=== PATIENT | male | born 1995 | race Caucasian/White ===

== ENCOUNTER → 2024-08-31 | Emergency (ER) | payer OTHER ==
[~2024-08-31] VITALS: Ht 180.3 cm; Wt 81.6 kg
[~2024-08-31] MED LIST: FAMOTIDINE/PF INJ 20 MG/2 ML VIAL IV ONE; ONDANSETRON HCL/PF 4 MG/2 ML VIAL ONE; PANT40TA49 PO
[2024-08-31] MEDS: IV NS 0.9% 1,000 ML BAG IV ONE (16:06)
[2024-08-31] MEDS: FAMOTIDINE/PF INJ 20 MG/2 ML VIAL IV ONE (16:06)
[2024-08-31] MEDS: ONDANSETRON HCL/PF 4 MG/2 ML VIAL IVP ONE (16:07)
[2024-08-31 16:21] LABS: BASOPHILS % (AUTO) 0.7 % (0.0-2.0); HEMATOCRIT 43 % (39-51); HEMOGLOBIN 14.8 g/dL (13.5-17.5); LYMPHOCYTES # (AUTO) 1.2 K/uL (0.8-4.8); LYMPHOCYTES % (AUTO) 27.3 % (20.0-44.0); MEAN CORPUSCULAR HEMOGLOBIN 32 PG (26.0-33.0); MEAN CORPUSCULAR HGB CONC 35 g/dl (31.0-36.0); MEAN CORPUSCULAR VOLUME 93 fL (80-96); MONOCYTES # (AUTO) 0.3 K/uL (0.1-1.30); MONOCYTES % (AUTO) 7.8 % (2.0-12.0); NEUTROPHILS # (AUTO) 2.9 K/uL (1.8-8.9); NEUTROPHILS % (AUTO) 63.2 % (43.0-81.0); PLATELET COUNT (AUTO) 291 K/uL (150-450); RED BLOOD CELL COUNT(AUTO) 4.57 MIL/uL (4.5-6.0); RED CELL DISTRIBUTION WIDTH 13.6 % (11.5-15.0); WHITE BLOOD COUNT (AUTO) 4.5 K/uL (4.3-11.0)
[2024-08-31 16:35] LABS: CALCIUM, SERUM 9.1 mg/dL (8.5-10.1); POTASSIUM 4.4 mmol/L (3.5-5.1)
[2024-08-31 16:40] LABS: ALBUMIN 4.5 g/dL (3.4-5.0); BILIRUBIN,DIRECT 0.1 mg/dL (0.0-0.2); BILIRUBIN,TOTAL 0.3 mg/dL (0.2-1.0); TOTAL PROTEIN, SERUM 7.9 g/dL (6.4-8.2)
[2024-08-31 17:41] VITALS: BP 118/80; TEMP 98.6; O2SAT 99
== END | disposition home or self-care (01) ==
LOC: ER 15:46
DX: R11.0 Nausea (principal)
CPT/HCPCS: 99284; 96374; 96361; 96375; 85025; 80048; 83690; 80076; 36415; J3490; J2405; J7030